=== PATIENT | female | born 1970 | race American Indian/Alaskan Native ===

== ENCOUNTER 2016-05-07 04:59 | Emergency (ER) | payer MEDICARE ==
[2016-05-07 05:09] VITALS: BP 121/81
--- NOTE | 2016-05-07 06:35 | Emergency Department Report ---
ED Rash HPI - HPI Chief Complaint: Skin Rash Stated Complaint: RASH Time Seen by Provider: 05/07/16 06:05 Duration: 3 Days Location: Back, Abdomen, Lower Extremities Suspected Cause: Insect, Other Rash Symptoms: Yes Itching, No Facial Swelling, No Tongue/Oral Swelling, No Breathing Difficulties, No Choking Sensation, No Wheezing/Dyspnea, No Peeling, No Blistering, No Fever Severity: moderate Other History: Patient stated that she may be exposed to bedbugs just last several days. Denies any fever or any other complaints. ED Review of Systems ROS: Stated complaint: RASH Other details as noted in HPI Comment: All other systems reviewed and negative Constitutional: denies: chills, fever Eyes: denies: eye pain, eye discharge, vision change ENT: denies: ear pain, throat pain Respiratory: denies: cough, shortness of breath, wheezing Cardiovascular: denies: chest pain, palpitations Endocrine: no symptoms reported Gastrointestinal: denies: abdominal pain, nausea, diarrhea Genitourinary: denies: urgency, dysuria, discharge Musculoskeletal: denies: back pain, joint swelling, arthralgia Skin: rash, pruritus. denies: lesions Neurological: denies: headache, weakness, paresthesias Psychiatric: denies: anxiety, depression Hematological/Lymphatic: denies: easy bleeding, easy bruising ED Past Medical Hx - Past Medical History Previous Medical History?: Yes Hx Congestive Heart Failure: No Hx Diabetes: No Hx Headaches / Migraines: Yes Hx Asthma: Yes (not treated) Hx COPD: No - Surgical History Past Surgical History?: Yes Additional Surgical History: Hyst - Social History Smoking Status: Never Smoker Substance Use Type: None - Medications Home Medications: Home Medications Medication Instructions Recorded Confirmed Last Taken Type metFORMIN [Glucophage] 500 mg PO QDAY PRN 11/09/14 11/14/14 10/14/14 09:00 History Ferrous Sulfate [Feosol 325 MG tab] 325 mg PO BID #60 tablet 11/16/14 Unknown Rx Ibuprofen [Motrin] 800 mg PO Q8HR PRN #30 tablet 11/16/14 Unknown Rx oxyCODONE /ACETAMINOPHEN [Percocet 2 tab PO Q4H PRN #40 tablet 11/16/14 Unknown Rx 5/325 mg] Cetirizine HCl [ZyrTEC] 10 mg PO DAILY #20 tab.chew 05/07/16 Unknown Rx Permethrin [Elimite] 60 gm TP ONCE #1 bottle 05/07/16 Unknown Rx Rash Exam - Exam General: Vital signs noted. No distress. Alert and acting appropriately. HEENT: No Periorbital Edema, No Conjuctival Injection, No Chemosis, No Tongue Edema, No Uvular Edema, No Compromised Airway, No Drooling Lungs: Yes Good Air Exchange, No Wheezes, No Ronchi, No Stridor, No Cough, No Labored Respirations, No Retractions, No Use of Accessory Muscles, No Other Abnormal Lung Sounds Heart: Yes Regular, No Murmur Skin: Yes Maculopapular Rash, Yes Erythema, No Urticarial Rash, No Excoriations , No Weeping, No Tenderness ED Course Vital Signs 05/07/16 05:00 Temperature 97.4 F L Pulse Rate 60 Respiratory 20 Rate Blood Pressure 121/81 [Right] O2 Sat by Pulse 100 Oximetry Critical care attestation.: If time is entered above; I have spent that time in minutes in the direct care of this critically ill patient, excluding procedure time. ED Disposition Clinical Impression: Scabies infestation Disposition: DISCHARGED TO HOME OR SELFCARE Is pt being admited?: No Does the pt Need Aspirin: No Condition: Good Instructions: Scabies (ED) Prescriptions: Cetirizine HCl [ZyrTEC] 10 mg PO DAILY #20 tab.chew Permethrin [Elimite] 60 gm TP ONCE #1 bottle Referrals: PRIMARY CARE, [Primary Care Provider] - 3-5 Days
== END 2016-05-07 06:47 | disposition home or self-care (01) ==
LOC: ED 04:59
DX: B86 Scabies (principal); J45.909 Unspecified asthma, uncomplicated
CPT/HCPCS: 99282

== ENCOUNTER 2016-11-18 16:19 | Emergency (ER) | payer MEDICARE ==
[2016-11-18 16:58] VITALS: BP 120/63
[2016-11-18 17:34] LABS: Basophils % (Auto) 0.8 % (0.0-1.8); Eosinophils % (Auto) 5.6 % (0.0-4.3); Hematocrit 38.8 % (30.3-42.9); Hemoglobin 12.8 gm/dl (10.1-14.3); Mean Corpuscular HGB Conc 33 % (30-34); Mean Corpuscular Hemoglobin 30 pg (28-32); Mean Corpuscular Volume 92 fl (79-97); Platelet Count 221 K/mm3 (140-440); Red Blood Count 4.22 M/mm3 (3.65-5.03); Red Cell Distribution Width 14.3 % (13.2-15.2); White Blood Count 7.4 K/mm3 (4.5-11.0)
[2016-11-18 17:43] LABS: Anion Gap 15 mmol/L; BUN/Creatinine Ratio 21.25; Blood Urea Nitrogen 17 mg/dL (7-17); Calcium 8.8 mg/dL (8.4-10.2); Carbon Dioxide 26 mmol/L (22-30); Chloride 106.4 mmol/L (98-107); Glucose 83 mg/dL (65-100); Potassium 4.1 mmol/L (3.6-5.0); Sodium 143 mmol/L (137-145)
[2016-11-18 19:31] LABS: Bilirubin,Urine NEG (Negative); Blood,Urine NEG (Negative); Ketones,Urine TR mg/dL (Negative); Leukocyte Esterase,Urine NEG (Negative); Mucus,Urine FEW /HPF; Nitrite,Urine NEG (Negative)
== END 2016-11-18 23:17 | disposition left against medical advice (07) ==
LOC: ED 16:19
DX: R42 Dizziness and giddiness (principal); Z53.21 Procedure and treatment not carried out due to patient leaving prior to being seen by health care provider
CPT/HCPCS: 36415; 80048; 81001; 81025; 85025